=== PATIENT | female | born 2000 ===

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

== ENCOUNTER 2019-01-09 17:42 | Emergency (ER) | payer MEDICAID, OTHER ==
[2019-01-09 17:42] VITALS: BMI 25.3
[2019-01-09 17:59] VITALS: TEMP 98.5; O2SAT 100
--- NOTE | 2019-01-09 18:23 | C.PDOC ---
History Of Present Illness 18 y/o female with no pertinent PMHx, otherwise well, presents to the ED complaining of intermittent headaches for 1 week. Patient reports daily headache which is intermittent throughout the day, and worse when she dips her face down. She notes that when she tilts her head up quickly, she feels dizzy. Otherwise patient denies any visual disturbances, lightheadedness, fevers, chills, nausea, vomiting, neck pain/stiffness, cough or URI symptoms, GI or complaints. Denies possibility of . Patient reports she took Tylenol yesterday with minimal relief. She has not tried any other meds. Time Seen by Provider: 01/09/19 18:07 Chief Complaint (Nursing): Headache History Per: Patient History/Exam Limitations: no limitations Onset/Duration Of Symptoms: Intermittent Episodes Current Symptoms Are (Timing): Still Present Associated Symptoms: denies: Photophobia, Nausea, Extremity Weakness Recent travel outside of the [place]: No Past Medical History Reviewed: Historical Data, Nursing Documentation, Vital Signs Vital Signs: Last Vital Signs Temp 98.5 F 01/09/19 17:56 Pulse 99 H 01/09/19 17:56 Resp 20 01/09/19 17:56 BP 113/78 01/09/19 17:56 Pulse Ox 100 01/09/19 17:56 - Medical History PMH: No Chronic Diseases Surgical History: No Surg Hx - [facility] Procedures DELIVERY OF PRODUCTS OF CONCEPTION, EXTERNAL APPROACH (05/02/17) DRAINAGE OF AMNIOTIC FL, THERAP FROM POC, VIA OPENING (05/02/17) REPAIR PERINEUM SKIN, EXTERNAL APPROACH (05/02/17) Family History: States: Unknown Family Hx - Social History Hx Tobacco Use: No Hx Alcohol Use: Yes Hx Substance Use: No - Immunization History Hx Influenza Vaccination: No Review Of Systems Except As Marked, All Systems Reviewed And Found Negative. Constitutional: Negative for: Fever, Chills, Weakness Eyes: Negative for: Vision Change ENT: Negative for: Nose Discharge, Nose Congestion Cardiovascular: Negative for: Palpitations, Light Headedness Respiratory: Negative for: Cough, Shortness of Breath Gastrointestinal: Negative for: Nausea, Vomiting, Abdominal Pain, Diarrhea Genitourinary: Negative for: Dysuria, Frequency, Hematuria Musculoskeletal: Negative for: Neck Pain, Back Pain Skin: Negative for: Rash Neurological: Positive for: Headache, Dizziness. Negative for: Weakness, Numbness, Change in Speech Physical Exam - Physical Exam Appears: Non-toxic, No Acute Distress Skin: Warm, Dry, No Rash Head: Atraumatic, Normacephalic, No Tenderness (to sinuses) Eye(s): bilateral: Normal Inspection (no nystagmus), PERRL, EOMI Ear(s): Bilateral: Normal Oral Mucosa: Moist Throat: Normal (oropharynx clear), No Erythema, No Exudate Neck: Normal ROM, No Midline Cervical Tenderness, Supple, Other (Palpable muscle spasm along right sternocleidomastoid muscle, and into right shoulder and back) Chest: No Deformity, No Tenderness Cardiovascular: Rhythm Regular, No Murmur Respiratory: Normal Breath Sounds, No Accessory Muscle Use, No Rhonchi, No Wheezing Gastrointestinal/Abdominal: Soft, No Tenderness, No Distention Extremity: Bilateral: Atraumatic, Normal Color And Temperature, Normal ROM (x 4) Pulses: Left Radial: Normal, Right Radial: Normal Neurological/Psych: Oriented x3, Normal Speech, Normal Cognition, Normal Cranial Nerves, Other (No neuro deficit) Gait: Steady ED Course And Treatment - Laboratory Results Urine POC: Negative O2 Sat by Pulse Oximetry: 100 (on RA) Pulse Ox Interpretation: Normal Reevaluation Time: 18:40 Reassessment Condition: Improved Medical Decision Making Medical Decision Making: Impression: Headache, Sternocleidomastoid spasm Plan: - Urine preg POC - 975 mg PO Tylenol - 5 mg PO Compazine - 10 mg PO Flexeril - 10 mg PO Reglan - Reassess On reassessment patient is resting comfortably, remains afebrile, and reports improvement. Will discharge patient home with rx for flexeril and tylenol extra strength. Disposition Counseled Patient/Family Regarding: Diagnosis, Need For Followup, Rx Given - Disposition Disposition: HOME/ ROUTINE Disposition Time: 18:49 Condition: STABLE Prescriptions: Acetaminophen [Tylenol Extra Strength] 1,000 mg PO TID #6 tablet Cyclobenzaprine [Cyclobenzaprine HCl] 10 mg PO TID #9 tab Instructions: Muscle Spasms (DC) Forms: General Discharge Instructions, [facility] (Japanese), Work Excuse - POA Present On Arrival: None - Clinical Impression Clinical Impression: Headache, Muscle spasm - Scribe Statement The provider has reviewed the documentation as recorded by the Kathleen Jackson Provider Attestation: All medical record entries made by the Kathleen were at my direction and personally dictated by me. I have reviewed the chart and agree that the record accurately reflects my personal performance of the history, physical exam, medical decision making, and the department course for this patient. I have also personally directed, reviewed, and agree with the discharge instructions and disposition.
[2019-01-09 19:05] VITALS: BP 126/79; PULSE 94; RESP 17
== END 2019-01-09 19:07 | disposition home or self-care (01) ==
LOC: C.ER 17:42
DX: R51 Headache (principal); M62.838 Other muscle spasm

== ENCOUNTER 2019-02-16 08:08 | Emergency (ER) | payer OTHER ==
[2019-02-16 08:09] VITALS: BMI 25.3
[2019-02-16 08:16] VITALS: O2SAT 100
[2019-02-16] MEDS ORDERED: cefTRIAXone 250 MG, Lidocaine Hydrochloride 1% 1 ML IM STA (08:39)
[2019-02-16 08:49] LABS: HCG,QUALITATIVE URINE NEGATIVE (NEGATIVE)
[2019-02-16 08:56] LABS: SQUAMOUS EPITHIAL 5 /hpf (0-5); URINE BACTERIA RARE (<OCC); URINE BILIRUBIN NEGATIVE (NEGATIVE); URINE BLOOD NEGATIVE (NEGATIVE); URINE CLARITY Hazy (Clear); URINE COLOR Yellow (YELLOW); URINE GLUCOSE (UA) NORMAL (Normal); URINE LEUKOCYTE ESTERASE 3+ Leu/uL (Negative); URINE PROTEIN NEGATIVE (NEGATIVE); URINE UROBILINOGEN NORMAL mg/dL (0.2-1.0)
--- NOTE | 2019-02-16 09:22 | C.PDOC ---
History Of Present Illness 18 year old female complains of vaginal pain and itching for the last 2 days after she had unprotected sex, associated with mild dysuria. Patient denies fever, vaginal bleeding, hematuria, or other symptoms. Time Seen by Provider: 02/16/19 08:09 Chief Complaint (Nursing): Female Genitourinary History Per: Patient History/Exam Limitations: no limitations Onset/Duration Of Symptoms: Days Current Symptoms Are (Timing): Still Present Past Medical History Reviewed: Historical Data, Nursing Documentation, Vital Signs Vital Signs: Last Vital Signs Temp 98 F 02/16/19 08:12 Pulse 97 H 02/16/19 08:12 Resp 16 02/16/19 08:12 BP 114/77 02/16/19 08:12 Pulse Ox 100 02/16/19 08:12 Primary Care Provider: FAMILY PROVIDER,CONY - [facility] Procedures DELIVERY OF PRODUCTS OF CONCEPTION, EXTERNAL APPROACH (05/02/17) DRAINAGE OF AMNIOTIC FL, THERAP FROM POC, VIA OPENING (05/02/17) REPAIR PERINEUM SKIN, EXTERNAL APPROACH (05/02/17) Family History: States: No Known Family Hx - Social History Hx Tobacco Use: No Hx Alcohol Use: Yes Hx Substance Use: No - Immunization History Hx Tetanus Toxoid Vaccination: No Hx Influenza Vaccination: No Hx Pneumococcal Vaccination: No Review Of Systems Except As Marked, All Systems Reviewed And Found Negative. Constitutional: Negative for: Fever Gastrointestinal: Negative for: Nausea, Vomiting, Abdominal Pain Genitourinary: Positive for: Dysuria, Other (Vaginal pain and itching). Negative for: Hematuria, Vaginal Bleeding Musculoskeletal: Negative for: Back Pain Physical Exam - Physical Exam Appears: Non-toxic, No Acute Distress Skin: Warm, Dry Head: Atraumatic Eye(s): bilateral: Normal Inspection Oral Mucosa: Moist Neck: Supple Gastrointestinal/Abdominal: Soft, No Tenderness Pelvic: Vaginal Discharge (large amount of cottage cheese-like yellow discharge), No Cervical Motion Tenderness, No Adnexal Tenderness, Other (Vaginal swelling, mild cervicitis) Extremity: Bilateral: Atraumatic, Normal ROM Neurological/Psych: Oriented x3, Normal Speech ED Course And Treatment - Laboratory Results Lab Results: Urine Color Yellow (YELLOW) 02/16/19 08:36 Urine Clarity Hazy (Clear) 02/16/19 08:36 Urine pH 5.0 (5.0-8.0) 02/16/19 08:36 Ur Specific [place] 1.029 (1.003-1.030) 02/16/19 08:36 Urine Protein Negative mg/dL (NEGATIVE) 02/16/19 08:36 Urine Glucose (UA) Normal mg/dL (Normal) 02/16/19 08:36 Urine Ketones Negative mg/dL (NEGATIVE) 02/16/19 08:36 Urine Blood Negative (NEGATIVE) 02/16/19 08:36 Urine Nitrate Negative (NEGATIVE) 02/16/19 08:36 Urine Bilirubin Negative (NEGATIVE) 02/16/19 08:36 Urine Urobilinogen Normal mg/dL (0.2-1.0) 02/16/19 08:36 Ur Leukocyte Esterase 3+ Moody/uL (Negative) H 02/16/19 08:36 Urine WBC (Auto) 25 /hpf (0-5) H 02/16/19 08:36 Ur Squamous Epith Cells 5 /hpf (0-5) 02/16/19 08:36 Urine Bacteria Rare (<OCC) 02/16/19 08:36 Urine HCG, Qual Negative (NEGATIVE) 02/16/19 08:36 Urine HCG, Qual Negative (NEGATIVE) 02/16/19 08:36 O2 Sat by Pulse Oximetry: 100 (RA) Pulse Ox Interpretation: Normal Progress Note: Patient tested for GC/CHLAMYDIA. Administered rocephin and zithromax. Patient will be discharged home on diflucan and metronidazole gel. Disposition - Disposition Disposition: HOME/ ROUTINE Disposition Time: 09:19 Condition: STABLE Additional Instructions: Follow up with PMD/OBGYN within 1-2 days. return to ED if feel worse. Prescriptions: Fluconazole [Diflucan] 150 mg PO QWK #2 tab Metronidazole [Metrogel-Vaginal] 1 ea VG QPM 7 Days #7 gel Instructions: Vaginitis Forms: Work/School/Gym Excuse, [facility] (Vietnamese) - Clinical Impression Clinical Impression: Vaginitis - PA / SIGN HANGER / Resident Statement MD/DO has reviewed & agrees with the documentation as recorded. - Scribe Statement The provider has reviewed the documentation as recorded by the Scribe Hallie Morel All medical record entries made by the Scribe were at my direction and personally dictated by me. I have reviewed the chart and agree that the record accurately reflects my personal performance of the history, physical exam, medical decision making, and the department course for this patient. I have also personally directed, reviewed, and agree with the discharge instructions and disposition.
[2019-02-16 09:46] VITALS: BP 113/73; PULSE 88; TEMP 98.4
[2019-02-16 09:47] VITALS: RESP 18
== END 2019-02-16 09:46 | disposition home or self-care (01) ==
LOC: C.ER 08:08
DX: N76.0 Acute vaginitis (principal)
CPT/HCPCS: 81001; 84703; 87086; 87491; 87591; 96372; 99284; J0696

== ENCOUNTER 2019-02-19 14:58 | Emergency (ER) | payer OTHER ==
[2019-02-19 14:58] VITALS: BMI 25.3
[2019-02-19 15:22] VITALS: O2SAT 100
--- NOTE | 2019-02-19 16:24 | C.PDOC ---
History Of Present Illness Patient is a 18 year old female, with no significant medical problems, who presents to the ED c/o sore throat, generalized headache, and generalized body aches for the past 3 days. Patient notes a mild cough as well. She denies any nausea, vomiting, diarrhea, abdominal pain, neck pain, neck stiffness, sick contacts, joint pain, rashes, CP, or SOB. Time Seen by Provider: 02/19/19 15:37 Chief Complaint (Nursing): ENT Problem History Per: Patient History/Exam Limitations: no limitations Onset/Duration Of Symptoms: Days (3) Current Symptoms Are (Timing): Still Present Associated Symptoms: Sore Throat, Cough Recent travel outside of the [place]: No Additional History Per: Patient Past Medical History Reviewed: Historical Data, Nursing Documentation, Vital Signs Vital Signs: Last Vital Signs Temp 99.7 F H 02/19/19 15:18 Pulse 106 H 02/19/19 15:18 Resp 20 02/19/19 15:18 BP 117/80 02/19/19 15:18 Pulse Ox 100 02/19/19 15:18 Primary Care Provider: FAMILY PROVIDER,NO - Medical History PMH: No Chronic Diseases Surgical History: No Surg Hx - [facility] Procedures DELIVERY OF PRODUCTS OF CONCEPTION, EXTERNAL APPROACH (05/02/17) DRAINAGE OF AMNIOTIC FL, THERAP FROM POC, VIA OPENING (05/02/17) REPAIR PERINEUM SKIN, EXTERNAL APPROACH (05/02/17) Family History: States: Unknown Family Hx - Social History Hx Tobacco Use: No Hx Alcohol Use: Yes Hx Substance Use: No - Immunization History Hx Tetanus Toxoid Vaccination: No Hx Influenza Vaccination: No Hx Pneumococcal Vaccination: No Review Of Systems Except As Marked, All Systems Reviewed And Found Negative. Constitutional: Positive for: Other (generalized body aches). Negative for: Fever ENT: Positive for: Throat Pain Cardiovascular: Negative for: Chest Pain Respiratory: Positive for: Cough (mild). Negative for: Shortness of Breath Gastrointestinal: Negative for: Nausea, Vomiting, Abdominal Pain, Diarrhea Musculoskeletal: Negative for: Neck Pain, Other (joint pain) Skin: Negative for: Rash Neurological: Positive for: Headache (generalized) Physical Exam - Physical Exam Appears: Well, Non-toxic, No Acute Distress Skin: Warm, Dry Head: Atraumatic, Normacephalic Eye(s): bilateral: PERRL, EOMI Oral Mucosa: Moist Throat: Erythema, No Exudate, Other (enlarged bilateral tonsils, tender left cervical lymphadenopathy ) Neck: Normal ROM, Supple Chest: Symmetrical Cardiovascular: Rhythm Regular, No Murmur Respiratory: No Rhonchi, No Stridor, No Wheezing Gastrointestinal/Abdominal: Soft, No Tenderness, No Distention Extremity: Normal ROM Pulses: Left Dorsalis Pedis: Normal, Right Dorsalis Pedis: Normal Neurological/Psych: Oriented x3 ED Course And Treatment O2 Sat by Pulse Oximetry: 100 (on RA) Pulse Ox Interpretation: Normal Medical Decision Making Medical Decision Making: Plan: Serology Influenza Serology Rapid Strep POC Urine Disposition Counseled Patient/Family Regarding: Studies Performed, Diagnosis, Need For Followup - Disposition Referrals: [facility] [Outside] [facility] [Outside] Disposition Time: 16:50 Additional Instructions: JOSHUA NAYLOR, thank you for letting us take care of you today. Your provider was Shasta Kearns MD and you were treated for THROAT PAIN/BODY PAINS. The emergency medical care you received today was directed at your acute symptoms. It may take several days for your symptoms to resolve. Return to the Emergency Department if your symptoms worsen, do not improve, or if you have any other problems. Please contact your doctor or call one of the physicians/clinics you have been referred to that are listed on the Patient Visit Information form that is included in your discharge packet. Bring any paperwork you were given at discharge with you along with any medications you are taking to your follow up visit. Our treatment cannot replace ongoing medical care by a primary care provider outside of the emergency department. Thank you for allowing the [facility] team to be part of your care today. If you had an X-Ray or CT scan: A Radiologist will review the ED reading if any change in treatment is needed we will contact you. If you had a blood, urine, or wound culture: It will take several days for the results, if any change in treatment is needed we will contact you. If you had an STI test: It will take 48 hours for the results. Please call after 1 week if you have not heard back. Instructions: Sore Throat, Adult (DC), Viral Upper Respiratory Infection, Adult (DC) Forms: [employer] (Italian) - POA Present On Arrival: None - Clinical Impression Clinical Impression: Upper respiratory infection, Pharyngitis - Scribe Statement The provider has reviewed the documentation as recorded by the Kathleen Vyas All medical record entries made by the Kathleen were at my direction and personally dictated by me. I have reviewed the chart and agree that the record accurately reflects my personal performance of the history, physical exam, medical decision making, and the department course for this patient. I have also personally directed, reviewed, and agree with the discharge instructions and disposition.
[2019-02-19 16:27] LABS: INFLUENZA A B NEGATIVE FOR FLU A/B (NEGATIVE)
[2019-02-19 16:53] VITALS: BP 108/76; PULSE 108; RESP 17; TEMP 99.9
== END 2019-02-19 16:57 | disposition home or self-care (01) ==
LOC: C.ER 14:58
DX: J02.9 Acute pharyngitis, unspecified (principal); J06.9 Acute upper respiratory infection, unspecified